=== PATIENT | male | born 1990 | race African-American/Black ===

== ENCOUNTER 2017-06-06 14:58 | Emergency (ER) | payer OTHER ==
[~2017-06-06] VITALS: Ht 185.4 cm; Wt 93.5 kg
[2017-06-06] MEDS ORDERED: MORPHINE 4 MG/ML 1ML SYRINGE IV PRN (16:00)
[2017-06-06] MEDS ORDERED: ONDANSETRON 4MG/2ML VIAL (J2405) IV ONE (16:00)
[2017-06-06] MEDS ORDERED: NS 1,000 ML IV ONE (16:00)
[2017-06-06 16:22] LABS: BASO # 0.1 K/mm3 (0.0-0.2); BASO % 2.1 % (0.0-1.0); EOS # 0.3 K/mm3 (0.0-0.50); EOS % 7.2 % (0.0-3.0); LARGE UNSTAINED CELL # 0.1 K/mm3 (0.0-0.4); LARGE UNSTAINED CELL % 2.3 % (0.0-4.0); LYMPH # 1.6 K/mm3 (1.5-6.5); LYMPH % 34.2 % (24.0-44.0); MEAN CORPUSCULAR HEMOGLOBIN 31.2 pg (27.0-33.0); MEAN CORPUSCULAR HGB CONC 34.6 g/dl (32.0-36.5); MEAN CORPUSCULAR VOLUME 90.2 fl (80.0-96.0); MONO # 0.4 K/mm3 (0.0-0.8); MONO % 7.9 % (0.0-5.0); NEUTROPHILS % 46.3 % (36.0-66.0); PLATELET COUNT, AUTOMATED 267 k/mm3 (150-450); RED CELL DISTRIBUTION WIDTH 12.6 % (11.5-14.5); WHITE BLOOD COUNT 4.4 K/mm3 (4.0-10.0)
[2017-06-06 16:53] LABS: ALBUMIN 3.8 GM/DL (3.2-5.2); ALBUMIN/GLOBULIN RATIO 1.23 (1.00-1.93); ALKALINE PHOSPHATASE 57 U/L (45-117); ALT/SGPT 31 U/L (12-78); ANION GAP 6 MEQ/L (8-16); AST/SGOT 25 U/L (15-37); BILIRUBIN,DIRECT 0.1 MG/DL (0.0-0.2); BILIRUBIN,TOTAL 0.6 MG/DL (0.2-1.0); BLOOD UREA NITROGEN 14 MG/DL (7-18); CALCIUM LEVEL 8.8 MG/DL (8.5-10.1); CARBON DIOXIDE LEVEL 28 MEQ/L (21-32); CHLORIDE LEVEL 105 MEQ/L (98-107); CREATININE FOR GFR 1.16 MG/DL (0.70-1.30); GLOMERULAR FILTRATION RATE > 60.0 (>60); GLUCOSE, FASTING 76 MG/DL (70-105); POTASSIUM SERUM 3.8 MEQ/L (3.5-5.1); SODIUM LEVEL 139 MEQ/L (136-145); TOTAL PROTEIN 6.9 GM/DL (6.4-8.2)
[2017-06-06] MEDS ORDERED: ISOVUE-370 76% 100ML VIAL (Q9967) As Ordered ONE (17:13)
--- NOTE | 2017-06-06 17:37 | REP ---
Clinical: Right-sided abdominal pain. Technique: Axial contrast enhanced images from the lung bases to the pubic symphysis using 100 ml Isovue 370 intravenous contrast material with coronal and sagittal re-formations. Findings: Mild mural thickening to the ascending and proximal transverse colon with subtle pericolonic stranding suggests colitis. The terminal ileum and appendix are normal. The remainder of the enteric system is without obstruction or further acute inflammatory process. No free air. No free fluid. Liver, spleen, pancreas, gallbladder, bilateral adrenal glands and kidneys are normal. Pelvis demonstrates normal bladder and age appropriate prostate/seminal vesicles. No pelvic fluid or ascites. No free air. No adenopathy. Vasculature normal. Lung bases are clear. Musculoskeletal structures are intact. Impression: Mild ascending colitis. Signed by Jose Ramirez MD 06/06/2017 05:29 P
[2017-06-06] MEDS ORDERED: IBUP-1022 PO (18:04)
[2017-06-06 18:07] VITALS: BP 122/72
== END 2017-06-06 18:07 | disposition home or self-care (01) ==
LOC: M ED 14:58
DX: K52.9 Noninfective gastroenteritis and colitis, unspecified (principal)
CPT/HCPCS: 74177; 80048; 80076; 81001; 83690; 85025; 96374; 96375; 99283; J2405; Q9967

== ENCOUNTER 2017-12-25 04:34 | Emergency (ER) | payer OTHER ==
[2017-12-25] MEDS: IBUPROFEN 800 MG TAB PO (07:36)
== END 2017-12-25 07:40 | disposition home or self-care (01) ==
LOC: M ED 04:34
DX: H92.01 Otalgia, right ear (principal); J06.9 Acute upper respiratory infection, unspecified; R51 Headache; Z87.891 Personal history of nicotine dependence
CPT/HCPCS: 99283

== ENCOUNTER 2017-12-29 12:15 | Emergency (ER) | payer OTHER ==
[2017-12-29 12:52] LABS: HEMATOCRIT 41.3 % (42.0-52.0); MEAN CORPUSCULAR HEMOGLOBIN 29.8 pg (27.0-33.0); MEAN CORPUSCULAR HGB CONC 33.9 g/dl (32.0-36.5); MEAN CORPUSCULAR VOLUME 87.9 fl (80.0-96.0); PLATELET COUNT, AUTOMATED 330 10^3/uL (150-450); RED CELL DISTRIBUTION WIDTH 12.7 % (11.5-14.5); WHITE BLOOD COUNT 3.7 10^3/uL (4.0-10.0)
[2017-12-29 13:14] LABS: ALBUMIN/GLOBULIN RATIO 1.05 (1.00-1.93); ALKALINE PHOSPHATASE 78 U/L (45-117); ALT/SGPT 33 U/L (12-78); AMPHETAMINES LEVEL URINE NEGATIVE (NEGATIVE); ANION GAP 7 MEQ/L (8-16); AST/SGOT 22 U/L (7-37); BARBITURATES URINE NEGATIVE (NEGATIVE); BENZODIAZEPINES URINE NEGATIVE (NEGATIVE); BILIRUBIN,DIRECT 0.1 MG/DL (0.0-0.2); BILIRUBIN,TOTAL 0.5 MG/DL (0.2-1.0); BLOOD UREA NITROGEN 8 MG/DL (7-18); CALCIUM LEVEL 8.8 MG/DL (8.5-10.1); CANNABINOIDS URINE NEGATIVE (NEGATIVE); CARBON DIOXIDE LEVEL 30 MEQ/L (21-32); CHLORIDE LEVEL 104 MEQ/L (98-107); COCAINE METABOLITE URINE NEGATIVE (NEGATIVE); CREATININE FOR GFR 0.91 MG/DL (0.70-1.30); GLOMERULAR FILTRATION RATE > 60.0 (>60); GLUCOSE, FASTING 81 MG/DL (70-100); METHADONE URINE NEGATIVE (NEGATIVE); OPIATES URINE NEGATIVE (NEGATIVE); PHENCYCLIDINE URINE NEGATIVE (NEGATIVE); POTASSIUM SERUM 4.2 MEQ/L (3.5-5.1); SALICYLATE LEVEL < 1.7 MG/DL (5.0-30.0); SODIUM LEVEL 141 MEQ/L (136-145); TOTAL PROTEIN 7.8 GM/DL (6.4-8.2)
[2017-12-29 13:22] LABS: ACETAMINOPHEN LEVEL < 2.0 UG/ML (10.0-30.0); ETHYL ALCOHOL (ETHANOL) < 0.003 % (0.000-0.010)
[2017-12-29] MEDS ORDERED: ACETAMINOPHEN TAB 650MG DOSE (2X325MG) As Ordered (17:36)
[2017-12-29] MEDS: ACETAMINOPHEN TAB 650MG DOSE (2X325MG) PO (17:42)
== END 2017-12-29 20:00 | disposition home or self-care (01) ==
LOC: M ED 12:15
DX: F39 Unspecified mood [affective] disorder (principal)
CPT/HCPCS: G0480

== ENCOUNTER 2018-04-23 18:06 | Emergency (ER) | payer OTHER ==
[2018-04-23] MEDS: ALBUTEROL SULFATE 2.5 MG/0.5 ML INH NEB SOLN NEB (17:55)
[2018-04-23] MEDS: diphenhydrAMINE 50 MG CAP PO (18:24)
[2018-04-23] MEDS: FAMOTIDINE 20 MG TAB PO (18:24)
[2018-04-23] MEDS: methylPREDNISolone INJ 125 MG/2 ML VIAL (J2930) IM (18:25)
== END 2018-04-23 19:51 | disposition home or self-care (01) ==
LOC: M ED 18:06
DX: R22.0 Localized swelling, mass and lump, head (principal); R42 Dizziness and giddiness; R11.2 Nausea with vomiting, unspecified; T50.A95A Adverse effect of other bacterial vaccines, initial encounter; X58.XXXA Exposure to other specified factors, initial encounter; Y92.89 Other specified places as the place of occurrence of the external cause; F17.210 Nicotine dependence, cigarettes, uncomplicated
CPT/HCPCS: J2930

== ENCOUNTER 2018-06-16 00:20 | Emergency (ER) | payer OTHER ==
[2018-06-16] MEDS: PERCOCET 5MG/325MG TAB PO (03:35)
[2018-06-16] MEDS: OXYCODONE/APAP 5MG/325MG(BULK FOR ED) 1 TABLET PO (04:22)
== END 2018-06-16 04:36 | disposition home or self-care (01) ==
LOC: M ED 00:20
DX: S93.04XA Dislocation of right ankle joint, initial encounter (principal); X50.9XXA Other and unspecified overexertion or strenuous movements or postures, initial encounter; Y92.830 Public park as the place of occurrence of the external cause
CPT/HCPCS: 73610

== ENCOUNTER 2018-10-12 09:56 | Emergency (ER) | payer OTHER | END 2018-10-12 10:47 | disposition home or self-care (01) | LOC: M ED 09:56 | DX: J11.1 Influenza due to unidentified influenza virus with other respiratory manifestations (principal) | CPT/HCPCS: 99283 ==